=== PATIENT | male | born 1960 | race Caucasian/White ===

== ENCOUNTER → 2019-12-29 | Outpatient (CLI) | payer OTHER ==
[2019-12-25 12:23] LABS: BASOPHILS # (AUTO) 0.1 (0.0-0.1); BASOPHILS % 0.6 % (0.0-1.0); EOSINOPHILS # (AUTO) 0.2 (0.0-0.4); EOSINOPHILS % 2.4 % (0.0-6.0); HEMATOCRIT 53.7 % (38.2-49.6); LYMPHOCYTES # (AUTO) 2.4 (1.0-3.2); LYMPHOCYTES % 24.6 % (18.0-39.1); MEAN CORPUSCULAR HEMOGLOBIN 31.7 pg (28-32); MEAN CORPUSCULAR HGB CONC 33.5 g/dL (31-35); MEAN CORPUSCULAR VOLUME 94.5 fL (81-99); MONOCYTES # (AUTO) 0.8 (0.2-0.8); MONOCYTES % 8.6 % (4.4-11.3); NEUTROPHILS # (AUTO) 6.1 (2.1-6.9); NEUTROPHILS % 63.4 % (38.7-80.0); PLATELET COUNT 225 x10e3/uL (140-360); RED BLOOD COUNT 5.68 x10e6/uL (4.3-5.7); RED CELL DISTRIBUTION WIDTH 14.8 % (11.7-14.4)
[2019-12-25 12:49] LABS: ANION GAP 12.7 mmol/L (8-16); BLOOD UREA NITROGEN 11 mg/dL (7-26); BUN/CREATININE RATIO 13 (6-25); CALCIUM 9.9 mg/dL (8.4-10.2); CARBON DIOXIDE 31 mmol/L (22-29); CHLORIDE 102 mmol/L (98-107); CREATININE, SERUM 0.85 mg/dL (0.72-1.25); EST GLOMERULAR FILTRATION RATE > 60 ML/MIN (60-); GLUCOSE 108 mg/dL (74-118); POTASSIUM 3.7 mmol/L (3.5-5.1); SODIUM 142 mmol/L (136-145)
--- NOTE | 2019-12-25 13:08 | Diagnostic Imaging Report ---
EXAMINATION: CHEST 2 VIEWS INDICATION: Pre-operative COMPARISON: None FINDINGS: LINES/TUBES:None LUNGS:The lungs are well-inflated. No focal consolidation or pulmonary edema. PLEURA:No pleural effusion or pneumothorax. MEDIASTINUM:The cardiomediastinal silhouette appears normal in size and shape. BONES/SOFT TISSUES:No acute osseous injury. ABDOMEN:No free air under the diaphragm. IMPRESSION: No focal pneumonia or pulmonary edema. Signed by: Mckenzie Ayers MD on 12/25/2019 1:05 PM
[2019-12-25 13:32] LABS: INR 0.91; PROTHROMBIN TIME 12.8 seconds (11.9-14.5)
[2019-12-25 13:33] LABS: PARTIAL THROMBOPLASTIN TIME 29.4 seconds (23.8-35.5)
[~2019-12-29] MED LIST: ALLOPURINOL; ALLOPURINOL300 MG PO; ASPIRIN325 MG PO; ATENOLOL-CHLOR1 EACH PO; ATORVASTATIN CA10 MG PO; BACITRACIN 50,000 UNIT VIAL ONE; BUPIVACAINE 0.25%/EPI 30ML SDV INJ ONE; THROMBIN FOR SOLN 5,000 UNIT VIAL ONE; TUMERIC PO; Z.0.ATENOLOL25 MG PO; Z.0.PROTONIX20 MG PO
== END | disposition home or self-care (01) ==
LOC: RAD 05:00 → OR 01-04 06:29 → EDSTATUS 01-04 09:00
PROVIDERS: ATTEND Neurological Surgery
DX: M51.26 Other intervertebral disc displacement, lumbar region (principal); Z01.810 Encounter for preprocedural cardiovascular examination; Z01.812 Encounter for preprocedural laboratory examination; Z01.818 Encounter for other preprocedural examination; Z11.59 Encounter for screening for other viral diseases; Z53.8 Procedure and treatment not carried out for other reasons
CPT/HCPCS: 36415; 71046; 80048; 85025; 85610; 85730; 86850; 86900; 93005; U0002 ×2

== ENCOUNTER 2020-01-25 08:25 | Observation (INO) | payer OTHER ==
--- NOTE | 2020-01-24 11:09 | Diagnostic Imaging Report ---
EXAMINATION: CHEST 2 VIEWS INDICATION: ^PRE-OP COMPARISON: 12/25/2019 FINDINGS: PA and lateral views TUBES and LINES: None. LUNGS: Lungs are well inflated. Lungs are clear. There is no evidence of pneumonia or pulmonary edema. PLEURA: No pleural effusion or pneumothorax. HEART AND MEDIASTINUM: The cardiomediastinal silhouette is unremarkable. BONES AND SOFT TISSUES: No acute osseous lesion. Soft tissues are unremarkable. UPPER ABDOMEN: No free air under the diaphragm. IMPRESSION: No acute thoracic radiographic abnormality. Signed by: Nadir Miguel MD on 01/24/2020 11:05 AM
[~2020-01-25] VITALS: Ht 182.9 cm; Wt 125.6 kg
[~2020-01-25 08:25] MED LIST changes: -BACITRACIN 50,000 UNIT VIAL ONE; -BUPIVACAINE 0.25%/EPI 30ML SDV INJ ONE; +BUPIVACAINE 0.5%/EPI 30 ML SDV INJ ONE; +IBUPROFEN 800MG/ 200ML 200 ML IV ONE; +LIDOCAINE HCL (LTA) 4 ML SOLN ONE
[2020-01-25] MEDS ORDERED: CEFAZOLIN SOD 1 GM/NS 50ML 100 ML IV ONE (09:27)
[2020-01-25] MEDS ORDERED: SUGAMMADEX SODIUM 200 MG/2 ML VIAL IV ONE (11:23)
[2020-01-25] MEDS ORDERED: MAGNESIUM/ALUMINUM/SIMETHICONE 30 ML UDC PO PRN (12:15)
[2020-01-25] MEDS ORDERED: HYDROMORPHONE 2MG/ML 2 MG/ML ML IV PRN (12:15)
[2020-01-25] MEDS ORDERED: PROMETHAZINE HCL (IM) 25 MG/ML VIAL IM PRN (12:15)
[2020-01-25] MEDS ORDERED: ZOLPIDEM TARTRATE 5 MG TAB PO PRN (12:15)
[2020-01-25] MEDS ORDERED: MORPHINE SULFATE INJ 4 MG/ML INJ 1ML IM PRN (12:15)
[2020-01-25] MEDS ORDERED: MORPHINE SULFATE INJ 4 MG/ML INJ 1ML ONE (12:48)
[2020-01-25] MEDS ORDERED: HYDROMORPHONE 1MG/1ML INJ ONE (13:16)
--- NOTE | 2020-01-25 13:22 | Diagnostic Imaging Report ---
EXAMINATION: Intraoperative lumbar spine radiograph-one view CLINICAL HISTORY: Intraoperative localization COMPARISON: None. DISCUSSION: Limited intraoperative cross table radiograph of the lumbar spine. Linear metallic markers overlie the L4 vertebral body and L2-L3 intervertebral disc space. No acute osseous abnormalities given exam limitations. Mild multilevel degenerative disc changes and facet arthropathy. IMPRESSION: Limited intraoperative lumbar spine radiographs with linear metallic markers overlying the L4 vertebral body and L2-L3 intervertebral disc space Signed by: Pérez Rodriguez MD on 01/25/2020 1:19 PM
--- OUTSIDE RECORDS SUMMARY | 2020-01-25 13:23 | XMS REPORT | Continuity of Care Document ---
Author Author [facility] t Organization [facility] Address [address] [place] [address] [place] [phone] Phone Unavailable Care Team Providers Care Credit Manager Name Role Phone SOY HAYNES Attphys Unavailable SOY HAYNES Admphys Unavailable Problems This patient has no known problems. Allergies, Adverse Reactions, Alerts This patient has no known allergies or adverse reactions. Medications This patient has no known medications. Procedures This patient has no known procedures. Results Test Description Test Time Test Comments Results Result Comments Source SPINE 1 VW LUMBAR 2020-01-25 13:16:[address] [address] Patient Name: JOSH SIERRA MR #: [id number] : 1960 Age/Sex: 59/M Req #: [id number] [facility] Physician: SOY HAYNES MD Ordered by: SOY HAYNES MD Report #: [id number] Location: PACU V Room/Bed: PACU-1 Procedure: [id number] DX/SPINE 1 VW LUMBAR Exam Date: 01/25/20 Exam Time: 1027 REPORT STATUS: Signed EXAMINATION: Intraoperative lumbar spine radiograph-one view CLINICAL HISTORY: Intraoperative localization COMPARISON: None. DISCUSSION: Limited intraoperative cross table radiograph of the lumbar spine. Linear metallic markers overlie the L4 vertebral body and L2-L3 intervertebral disc space. No acute osseous abnormalities given exam limitations. Mild multilevel degenerative disc changes and facet arthropathy. IMPRESSION: Limited intraoperative lumbar spine radiographs with linear metallic markers overlying the L4 vertebral body and L2-L3 intervertebral disc space Signed by: Brooks Rodriguez MD on 01/25/2020 1:19 PM Dictated By: BROOKS RODRIGUEZ MD 18 Transcribed By: BARBER on 01/25/201318 COPY TO: SOY HAYNES MD CHEST 2 VIEWS 2020-01-24 11:05:00 [place] [address] Patient Name: JOSH SIERRA MR #: [id number] : 1960 Age/Sex: 59/M Req #: [id number] Adm Physician: Ordered by: SOY HAYNES MD Report #: [id number] Location: OR Room/Bed: Procedure: [id number] DX/CHEST 2 VIEWS Exam Date: Exam Time: REPORT STATUS: Signed EXAMINATION: CHEST 2 VIEWS INDICATION: PRE-OP COMPARISON: 12/25/2019 FINDINGS: PA and lateral views TUBES and LINES: None. LUNGS: Lungs are well inflated. Lungs are clear. There is no evidence of pneumonia or pulmonary edema. PLEURA: No pleural effusion or pneumothorax. HEART AND MEDIASTINUM: The cardiomediastinal silhouette is unremarkable. BONES AND SOFT TISSUES: No acute osseous lesion. Soft tissues are unremarkable. UPPER ABDOMEN: No free air under the diaphragm. IMPRESSION: No acute thoracic radiographic abnormality. Signed by: Ajay Green MD on 01/24/2020 11:05 AM Dictated By: AJAY GREEN MD 04 Transcribed By: BARBER on 01/24/201104 COPY TO: SOY HAYNES MD CHEST 2 VIEWS 2019-12-25 13:05:00 [place] [address] Patient Name: JOSH SIERRA MR #: [id number] : 1960 Age/Sex: 59/M Req #: [id number] Adm Physician: Ordered by: SOY HAYNES MD Report #: [id number] Location: OR Room/Bed: Procedure: [id number] DX/CHEST 2 VIEWS Exam Date: 12/25/19 Exam Time: 1230 REPORT STATUS: Signed EXAMINATION: CHEST 2 VIEWS INDICATION: Pre-operative COMPARISON: None FINDINGS: LINES/TUBES:None LUNGS:The lungs are well-inflated. No focal consolidation or pulmonary edema. PLEURA:No pleural effusion or pneumothorax. MEDI ASTINUM:The cardiomediastinal silhouette appears normal in size and shape. BONES/SOFT TISSUES:No acute osseous injury. ABDOMEN:No free air under the diaphragm. IMPRESSION: No focal pneumonia or pulmonary edema. Signed by: Sera Ayers MD on 12/25/2019 1:05 PM Dictated By: SERA AYERS MD 04 Transcribed By: BARBER on 12/25/191304 COPY TO: SOY HAYNES MD
--- NOTE | 2020-01-25 13:24 | Diagnostic Imaging Report ---
EXAMINATION: Intraoperative lumbar spine radiograph-one view CLINICAL HISTORY: Intraoperative localization COMPARISON: Intraoperative lumbar spine radiograph performed earlier on the same day (01/25/2020) DISCUSSION: Limited intraoperative cross table radiograph of the lumbar spine. Metallic forceps overlie the posterior spinal elements of L2. No acute osseous abnormalities given exam limitations. Multilevel degenerative disc changes and facet arthropathy. IMPRESSION: Limited intraoperative lumbar spine radiograph with metallic forceps overlying the posterior spinal elements of L2. Signed by: Pérez Rodriguez MD on 01/25/2020 1:21 PM
--- NOTE | 2020-01-25 13:26 | Diagnostic Imaging Report ---
EXAMINATION: Intraoperative lumbar spine radiograph-one view CLINICAL HISTORY: Intraoperative localization COMPARISON: Intraoperative lumbar spine radiographs performed earlier on the same day (01/25/2020) DISCUSSION: Limited intraoperative cross table radiograph of the lumbar spine. Metallic surgical hardware overlies the posterior soft tissues at the level of L3 and L4. No acute osseous abnormalities given exam limitations. Multilevel degenerative disc changes and facet arthropathy. IMPRESSION: Limited intraoperative lumbar spine radiograph with metallic surgical hardware overlying the posterior soft tissues at the level of L3 and L4. Signed by: Pérez Rodriguez MD on 01/25/2020 1:23 PM
[2020-01-25] MEDS: ONDANSETRON HCL INJ 2MG/ML 2ML 2 MG/ML VIAL IV PRN (15:13)
[2020-01-25] MEDS ORDERED: LACTATED RINGER'S 1,000 ML IV SCH (15:30)
[2020-01-25 16:12] VITALS: BP 118/78
[2020-01-25 16:29] VITALS: BP 118/78
[2020-01-25 16:35] VITALS: BP 118/78
--- NOTE | 2020-01-25 17:59 | Operative Report ---
DATE OF PROCEDURE: 01/25/2020 SURGEON: Derick León MD PREOPERATIVE DIAGNOSIS: Right L3-4 intraforaminal disk herniation with L3 radiculopathy in the setting of transitional lumbosacral anatomy. POSTOPERATIVE DIAGNOSIS: Right L3-4 intraforaminal disk herniation with L3 radiculopathy in the setting of transitional lumbosacral anatomy. PROCEDURE: Right L3-4 lateral foraminotomy and microsurgical diskectomy, 618[address]. ANESTHESIA: General. INDICATIONS: The patient is a 59-year-old man who presents with an intractable right L3 radiculopathy due to an L3-4 intraforaminal disk herniation in the setting of transitional lumbosacral anatomy. He was taken to surgery for microsurgical diskectomy through a lateral foraminal approach. PROCEDURE IN DETAIL: After induction of general anesthesia, the patient was placed on the operating table in prone position over Andrade frame. Lumbar region was prepped and draped in sterile fashion. A preoperative x-ray was obtained. A small paramedian incision was created to the right of midline. Dissection was carried out through the abundant subcutaneous fat to reach the lumbar fascia. The lumbar fascia was open to the right of midline and dissection was carried out to expose the right side of the underlying laminae. Another x-ray confirmed localization below the L2 pedicle. One segment was counted below this segment and the pars interarticularis of L3 was exposed. A 3rd x-ray revealed correct localization below the L3 pedicle. The operating microscope was brought in. Retraction was maintained with an Aesculap expandable speculum retractor. A high-speed drill equipped with a 5 mm mini bur was used to drill the lateral rim of the pars interarticularis of L3 extending to the superior lateral margin of the inferior articular process of L3 on the right side. The superior tip of the superior articular process of L4 as extended into the L3-4 neural foramina was also drilled away. The lateral extension of the ligamentum flavum into the L3 neural foramen was resected and the L3 exiting nerve root was exposed below the L3 pedicle. The herniated disk material came into view and was mobilized with a micro ball probe and removed as multiple fragments. The opening into the annulus of the disk was enlarged in the L3 neural foramina and loose contents of the disk were evacuated with curettes and pituitary instruments. The portion of the disk herniation was extended in subligamentous compartment into the lateral margin of the spinal canal was also resected. Excellent decompression was achieved. The wound was irrigated with bacitracin solution. Meticulous hemostasis was secured. A small piece of fat was harvested from the subcutaneous compartment and placed over the L3 nerve root. The wound was irrigated with bacitracin solution and closed in multiple layers with 0 and 2-0 Vicryl sutures. The skin was closed with 3-0 Monocryl sutures in subcuticular fashion. Steri-Strips and dressing were applied. The patient was awakened, extubated, and taken to postanesthesia care unit in stable condition. No intraoperative complications were encountered. ESTIMATED BLOOD LOSS: 20 mL. Derick León MD PP/ROSEMARY /[id number]
[2020-01-25] MEDS: CARISOPRODOL 350 MG TAB PO PRN (18:55)
[2020-01-25] MEDS: CEFAZOLIN SOD 1 GM/NS 50ML 50 ML IV SCH (18:55)
[2020-01-25] MEDS: ACETAMINOPHEN 325 MG TAB PO PRN ×2 (18:56→23:04)
--- NOTE | 2020-01-25 19:00 | NUR ---
Resumed care of patient. Patient awake and resting in bed, no s/s of distress at this time. Bed locked and in lowest position, side rails upx3, call light placed within reach. All safety measures in place.
[2020-01-25] MEDS ORDERED: PROPOFOL IV EMULSION 10 MG/ML 20 ML VIAL ONE (19:28)
[2020-01-25] MEDS ORDERED: NEOSTIGMINE 1 MG/ML 10ML VIAL ONE (19:28)
[2020-01-25] MEDS ORDERED: ONDANSETRON HCL INJ 2MG/ML 2ML 2 MG/ML VIAL ONE (19:28)
[2020-01-25] MEDS ORDERED: SEVOFLURANE INHAL SOLN 250 ML PEN BTL ONE (19:28)
[2020-01-25] MEDS ORDERED: FENTANYL CITRATE/PF 100MCG/2 ML INJ ONE (19:28)
[2020-01-25] MEDS ORDERED: DEXAMETHASONE SOD PHOS INJ 4 MG/ML VIAL ONE (19:28)
[2020-01-25] MEDS ORDERED: MIDAZOLAM HCL 2 MG/2 ML VIAL ONE (19:28)
[2020-01-25] MEDS ORDERED: ROCURONIUM BROMIDE 10 MG/ML 5ML VIAL IV ONE (19:28)
[2020-01-25] MEDS ORDERED: GLYCOPYRROLATE INJ 0.2 MG/ML VIAL ONE (19:28)
[2020-01-25] MEDS ORDERED: LIDOCAINE HCL 2% LOCAL INJ 5 ML SDV VIAL INJ ONE (19:28)
[2020-01-25] MEDS ORDERED: LIDOCAINE HCL 2% JELLY 5 ML TUBE ONE (19:28)
[2020-01-25 20:00] VITALS: BP 118/84
[2020-01-25 20:58] VITALS: BP 118/84
[2020-01-25] MEDS ORDERED: ATORVASTATIN 10 MG TAB PO SCH (21:00)
[2020-01-26] VITALS: BP 104/76
[2020-01-26] MEDS: CARISOPRODOL 350 MG TAB PO PRN ×2 (00:21→08:07)
[2020-01-26] MEDS: OXYCODONE/ACETAMINOPHEN 5-325 1 EACH TABLET PO PRN ×2 (00:21→08:07)
[2020-01-26] MEDS: CEFAZOLIN SOD 1 GM/NS 50ML 50 ML IV SCH (02:05)
[2020-01-26 04:00] VITALS: BP 98/66
--- NOTE | 2020-01-26 07:00 | NUR ---
Bedside report given to oncoming nurse. Patient awake and sitting up in bed, no s/s of distress at this time. All safety measures in place.
[2020-01-26] MEDS ORDERED: PANTOPRAZOLE SOD 40 MG TABEC PO SCH (07:30)
[2020-01-26 08:00] VITALS: BP 112/71
[2020-01-26] MEDS: ONDANSETRON HCL INJ 2MG/ML 2ML 2 MG/ML VIAL IV PRN (08:04)
[2020-01-26 08:43] VITALS: BP 98/66
[2020-01-26 08:44] VITALS: BP 98/66
[2020-01-26] MEDS ORDERED: ALLOPURINOL 300 MG TAB PO SCH (09:00)
[2020-01-26] MEDS ORDERED: ATENOLOL 100 MG TAB PO SCH (09:00)
[2020-01-26] MEDS ORDERED: NON-FORMULARY MEDICATION (Atenolol/Chlorthalidone (Atenolol-Chlorthalidone 100-25) 1 TAB) PO SCH (09:00)
[2020-01-26] MEDS ORDERED: CHLORTHALIDONE 25 MG TAB PO SCH (09:00)
== END 2020-01-26 09:32 | disposition home or self-care (01) ==
LOC: OR 08:25 → PACU V 12:06 → MED/SURG 14:41
PROVIDERS: ADMIT Neurological Surgery; ATTEND Neurological Surgery
DX: M51.16 Intervertebral disc disorders with radiculopathy, lumbar region (principal); I10 Essential (primary) hypertension; E78.5 Hyperlipidemia, unspecified; Z01.812 Encounter for preprocedural laboratory examination; Z01.818 Encounter for other preprocedural examination
CPT/HCPCS: 36415; 63056; 71046; 72020; 86850; 86900; 88304; G0378 ×2; J0690 ×2; J1100; J1170; J2001 ×2; J2250; J2270; J2405 ×2; J2704; J2710; J3010; S0164

== ENCOUNTER → 2020-05-29 | Outpatient (CLI) | payer OTHER ==
[~2020-05-29] MED LIST changes: -BUPIVACAINE 0.5%/EPI 30 ML SDV INJ ONE; -IBUPROFEN 800MG/ 200ML 200 ML IV ONE; -LIDOCAINE HCL (LTA) 4 ML SOLN ONE; -THROMBIN FOR SOLN 5,000 UNIT VIAL ONE
== END ==
LOC: RAD 09:13
PROVIDERS: ATTEND Internal Medicine
DX: R06.02 Shortness of breath (principal)